=== PATIENT | female | born 1965 | race Caucasian/White ===

== ENCOUNTER 2020-09-17 13:05 | Emergency (ER) | payer OTHER | END 2020-09-17 14:45 | disposition home or self-care (01) | LOC: FER 13:05 | DX: M65.4 Radial styloid tenosynovitis [de Quervain] (principal); I25.2 Old myocardial infarction; K21.9 Gastro-esophageal reflux disease without esophagitis; F17.200 Nicotine dependence, unspecified, uncomplicated | CPT/HCPCS: 73110 ==